=== PATIENT | male | born 1960 | race Caucasian/White ===

== ENCOUNTER 2020-11-11 10:21 | Outpatient (CLI) | payer BC, SELFPAY ==
--- NOTE | ~2020-11-11 | XR_ITS ---
EXAMINATION: XR ankle LT min 3V DATE: 11/11/2020 10:46 INDICATION: Left ankle pain. TECHNIQUE: 4 views of left ankle were obtained. COMPARISON: None. FINDINGS: Bone alignment is normal. No fracture. There is mild midfoot osteoarthritis. There are enth esophytes at the posterior and plantar aspects of calcaneal tuberosity. Ankle soft tissue swelling is noted. IMPRESSION: 1. Mild midfoot osteoarthritis. Reviewed, dictated and finalized at location A. [employer]
== END 2020-11-11 10:22 | disposition home or self-care (01) ==
PROVIDERS: PCP Internal Medicine; Visit Provider Internal Medicine
DX: S93.402A Sprain of unspecified ligament of left ankle, initial encounter (principal)
CPT/HCPCS: 73610

== ENCOUNTER 2022-02-20 08:13 | Outpatient (CLI) | payer BC, SELFPAY ==
--- NOTE | ~2022-02-20 | CT_ITS ---
EXAMINATION: CT abdomen pelvis wo con DATE: 02/20/2022 08:58 INDICATION: Left flank pain TECHNIQUE: Computed tomography (CT) of the abdomen and pelvis was performed without intravenous contr ast. The dose-length product was 358.40 mGy-cm. Automated exposure control and iterative reconstructi on technique were employed. COMPARISON: CT dated 10/20/2018 FINDINGS: Lung bases are unremarkable. Heart size normal. No significant pleural or pericardial effus ion. No significant vascular abnormality. No lymphadenopathy. Gallbladder is present. The liver, spleen, pancreas, adrenal glands and kidneys are unremarkable. Gallbladder is present. No renal/ureteral stones or hydronephrosis. Bladder is nondistended for bladder wall evaluation. There a re calcifications of the seminal vesicles. Nonobstructive bowel gas pattern. Normal appendix. No free air or free fluid. No acute osseous abnormality. Mild lumbar spondylosis. IMPRESSION: 1. No acute abdominal abnormality. No evidence for renal/ureteral stone or hydronephrosis. Reviewed, dictated and finalized at location B. IMPRESSION: 1. No acute abdominal abnormality. No evidence for renal/ureteral stone or hydr onephrosis.
== END 2022-02-20 08:14 | disposition home or self-care (01) ==
LOC: CHSIMG 08:16
PROVIDERS: PCP Internal Medicine; Visit Provider Internal Medicine
DX: R10.9 Unspecified abdominal pain (principal)
CPT/HCPCS: 74176

== ENCOUNTER 2024-02-10 14:53 | Outpatient (CLI) | payer BC, SELFPAY ==
--- NOTE | ~2024-02-10 | XR_ITS ---
EXAM: XR foot LT min 3V DATE: 02/10/2024 15:14 HISTORY: L FOOT SWELLING, TOE INFECTION . COMPARISON: None available. FINDINGS: Normal mineralization. No fracture or dislocation. No lytic or blastic lesion. Moderate er osive change at the second PIP joint. Mild scattered degenerative changes. Prominent os trigonum. Mil d Achilles and plantar enthesopathy. Soft tissue swelling over the proximal second digit. IMPRESSION: Erosive changes at the left second PIP joint may be secondary to septic arthritis or infl ammatory arthropathy. Reviewed, dictated and finalized at location K. IMPRESSION: Erosive changes at the left second PIP joint may be secondary to se ptic arthritis or inflammatory arthropathy.
== END 2024-02-10 14:54 | disposition home or self-care (01) ==
LOC: CHSIMG 14:55
PROVIDERS: PCP Internal Medicine; Visit Provider Nurse Practitioner Family
DX: M79.89 Other specified soft tissue disorders (principal); L03.116 Cellulitis of left lower limb
CPT/HCPCS: 73630